=== PATIENT | male | born 1985 | race Hispanic/Latino ===

== ENCOUNTER 2018-01-11 22:00 | Emergency (ER) | payer MEDICARE ==
--- NOTE | 2018-01-11 23:42 | Emergency Department Report ---
ED General Adult HPI - General Chief complaint: Abdominal Pain Stated complaint: GENERAL WEAKNESS Time Seen by Provider: 01/11/18 23:01 Source: patient, EMS Mode of arrival: Stretcher Limitations: No Limitations - History of Present Illness Initial comments: 32-year-old male with a past medical history of arthritis, hypertension, benzodiazepine withdrawals, and seizures presents to the hospital with multiple complaints ongoing for several weeks. Patient states this is third hospital he has gone to an attempt to find out was wrong with him but he has not seen a primary care doctor. Patient complains of posterior neck pain radiating to left shoulder and arm, 2 episodes of nausea and vomiting today with left lower quadrant abdominal pain. He complaints a syncopal episode today. Patient has a resting tremor. When questioned about this patient states he is unsure how long he has had the tremor because he "does not realize he is shaking. He denies current prescription or abuse of benzodiazepines or alcohol. He was at another [facility] yesterday with the same complaints. Diagnosis was arthralgia, hip strain, back and neck pain general the patient was described Diclofenac and orphenadrine citrate as an outpatient and follow- up was advised. Patient received IV morphine and Phenergan while in the ED. Patient states he also received Ativan in the ED but this is not documented on the discharge papers. This paperwork also listed patient has an allergy to Haldol. He has a history of hypertension and currently take a lisinopril. He states that the lopressor has worked better for his blood pressure in the past. Severity scale (0 -10): 10 - Related Data Previous Rx's Medication Instructions Recorded Last Taken Type ALPRAZolam [Xanax TAB] 2 mg PO Q8HR #1 mo 06/04/15 Unknown Rx Docusate Sodium [Colace CAP] 100 mg PO BID #60 capsule 06/04/15 Unknown Rx Famotidine [Pepcid] 20 mg PO BID #60 tablet 06/04/15 Unknown Rx Metoprolol [Lopressor TAB] 12.5 mg PO BID #1 mo 06/04/15 Unknown Rx Mupirocin [Bactroban 2% OINT] 1 applic TP BID #1 tube 06/04/15 Unknown Rx amLODIPine [Norvasc] 10 mg PO QDAY #30 tablet 06/04/15 Unknown Rx diphenhydrAMINE [Benadryl CAP] 50 mg PO QHS #30 capsule 06/04/15 Unknown Rx oxyCODONE /ACETAMINOPHEN [Percocet 1 tab PO Q6H PRN #90 tab 06/04/15 Unknown Rx 5/325 mg] traZODone [Desyrel] 150 mg PO QHS #1 mo 06/04/15 Unknown Rx Allergies Allergy/AdvReac Type Severity Reaction Status Date / Time No Known Allergies Allergy Unverified 05/27/15 14:08 ED Review of Systems ROS: Stated complaint: GENERAL WEAKNESS Other details as noted in HPI Comment: All other systems reviewed and negative ED Past Medical Hx - Past Medical History Hx Hypertension: Yes (MOTHER DENIES BP) Hx Congestive Heart Failure: No Hx Diabetes: No Hx Arthritis: Yes (UPPER BACK) Hx Seizures: Yes Hx Psychiatric Treatment: Yes (benzo withdrawal) Hx Asthma: No Hx COPD: No - Social History Smoking Status: Current Every Day Smoker Substance Use Type: None - Medications Home Medications: Home Medications Medication Instructions Recorded Confirmed Last Taken Type ALPRAZolam [Xanax TAB] 2 mg PO Q8HR #1 mo 06/04/15 Unknown Rx Docusate Sodium [Colace CAP] 100 mg PO BID #60 capsule 06/04/15 Unknown Rx Famotidine [Pepcid] 20 mg PO BID #60 tablet 06/04/15 Unknown Rx Metoprolol [Lopressor TAB] 12.5 mg PO BID #1 mo 06/04/15 Unknown Rx Mupirocin [Bactroban 2% OINT] 1 applic TP BID #1 tube 06/04/15 Unknown Rx amLODIPine [Norvasc] 10 mg PO QDAY #30 tablet 06/04/15 Unknown Rx diphenhydrAMINE [Benadryl CAP] 50 mg PO QHS #30 capsule 06/04/15 Unknown Rx oxyCODONE /ACETAMINOPHEN [Percocet 1 tab PO Q6H PRN #90 tab 06/04/15 Unknown Rx 5/325 mg] traZODone [Desyrel] 150 mg PO QHS #1 mo 06/04/15 Unknown Rx ED Physical Exam - General Limitations: No Limitations - Other Other exam information: General: No limitations, patient is alert in no acute distress Head exam: Atraumatic, normocephalic Eyes exam: Normal appearance ENT: Moist mucous membrane, normal oropharynx Neck exam: Normal inspection, full range of motion, diffuse post neck tenderness extending to left side of neck and shoulder Respiratory exam: Clear to auscultation bilateral, no wheezes, rales, crackles Cardiovascular: Normal rate and rhythm, normal heart sounds Abdomen: Soft, nondistended, LLQ tenderness, with normal bowel sounds, no rebound, or guarding Extremity: Full range of motion normal inspection no deformity Back: Normal Inspection, full range of motion, no tenderness Neurologic: Alert, oriented x3, cranial nerves intact, no motor or sensory deficit. Resting tremors noted Psychiatric: normal affect, normal mood Skin: Warm, dry, intact ED Course Vital Signs 01/11/18 01/11/18 01/12/18 22:39 23:02 00:04 Temperature 98.5 F Pulse Rate 77 82 70 Respiratory 22 20 Rate Blood Pressure 150/110 Blood Pressure 156/105 147/97 [Right] O2 Sat by Pulse 99 97 Oximetry 01/12/18 02:13 Temperature Pulse Rate 88 Respiratory Rate Blood Pressure Blood Pressure 138/86 [Right] O2 Sat by Pulse Oximetry ED Medical Decision Making - Lab Data Result diagrams: 01/11/18 23:24 01/11/18 23:24 Lab Results 01/11/18 01/11/18 01/11/18 Range/Units 23:24 23:24 Unknown WBC 10.9 (4.5-11.0) K/mm3 RBC 4.43 (3.65-5.03) M/mm3 Hgb 14.6 (11.8-15.2) gm/dl Hct 42.5 (35.5-45.6) % MCV 96 H (84-94) fl MCH 33 H (28-32) pg MCHC 35 H (32-34) % RDW 15.6 H (13.2-15.2) % Plt Count 449 H (140-440) K/mm3 Lymph % (Auto) 31.2 (13.4-35.0) % [place] % (Auto) 8.1 H (0.0-7.3) % Eos % (Auto) 0.8 (0.0-4.3) % Baso % (Auto) 0.8 (0.0-1.8) % Lymph # 3.4 (1.2-5.4) K/mm3 [place] # 0.9 H (0.0-0.8) K/mm3 Eos # 0.1 (0.0-0.4) K/mm3 Baso # 0.1 (0.0-0.1) K/mm3 Seg Neutrophils % 59.1 (40.0-70.0) % Seg Neutrophils # 6.4 (1.8-7.7) K/mm3 Sodium 140 (137-145) mmol/L Potassium 3.5 L (3.6-5.0) mmol/L Chloride 100.5 (98-107) mmol/L Carbon Dioxide 26 (22-30) mmol/L Anion Gap 17 mmol/L BUN 18 (9-20) mg/dL Creatinine 1.2 (0.8-1.5) mg/dL Estimated GFR > 60 ml/min BUN/Creatinine Ratio 15 % Glucose 84 (75-100) mg/dL Calcium 10.0 (8.4-10.2) mg/dL Magnesium 1.70 (1.7-2.3) mg/dL Total Bilirubin 0.30 (0.1-1.2) mg/dL AST 24 (5-40) units/L ALT 22 (7-56) units/L Alkaline Phosphatase 90 (35-129) units/L Total Creatine Kinase 513 H (55-170) units/L CK-MB (CK-2) 1.4 (0.0-4.0) ng/mL CK-MB (CK-2) Rel Index 0.2 (0-4) Troponin T < 0.010 (0.00-0.029) ng/mL Total Protein 7.6 (6.3-8.2) g/dL Albumin 4.3 (3.9-5) g/dL Albumin/Globulin Ratio 1.3 % Lipase 29 (13-60) units/L Urine Color Yellow (Yellow) Urine Turbidity Clear (Clear) Urine pH 6.0 (5.0-7.0) Ur Specific [place] 1.031 H (1.003-1.030) Urine Protein 30 mg/dl (Negative) mg/dL Urine Glucose (UA) Neg (Negative) mg/dL Urine Ketones Tr (Negative) mg/dL Urine Blood Neg (Negative) Urine Nitrite Neg (Negative) Urine Bilirubin Neg (Negative) Urine Urobilinogen 2.0 (<2.0) mg/dL Ur Leukocyte Esterase Neg (Negative) Urine WBC (Auto) 3.0 (0.0-6.0) /HPF Urine RBC (Auto) 3.0 (0.0-6.0) /HPF U Epithel Cells (Auto) 1.0 (0-13.0) /HPF Ur Transition Epith Cell 1 /HPF Hyaline Casts 4 /LPF Urine Mucus 3+ /HPF - EKG Data -: EKG Interpreted by Me EKG shows normal: sinus rhythm, axis (qrs 34), QRS complexes (qrsd 99), ST-T waves (no stemi/t inv) Rate: normal (81) - EKG Data When compared to previous EKG there are: previous EKG unavailable - Medical Decision Making The prescription monitoring website access evaluate patient's recently filled medication. On 01/02/2018 patient had 24 tablets of tramadol 50 mg filled. It appears that patient has been on opioid addiction medication at least for the past year. He was initially on Buprenorphine 8 mg SL and received a 1 month supply monthly up until september. Suboxone 8mg-2mg sl film 30 days supply has been prescribed since October but pt only had a 7 day supply December 18 instead of his typical 30 days supply. Pt was on clonazepam 2mg with 30 day last filled in September labs are unremarkable ct head, cervical spine, and abd/pelvis ct ordered pt received toradol for pain 1 L NS Lopressor ordered than cancelled since bp improved pt refused to go to ct without additional pain medication. Pt obviously has a hx of drug narcotic abuse and is likely experiencing withdrawals and increased pain from lack of suboxone he is signing out AMA without imaging studies since I am not giving him any additional pain med he plans to go to yet another hospital. - Differential Diagnosis drug-seeking, chronic pain, narcotic withdrawal, gastroenteritis, diverticu Critical Care Time: No Critical care attestation.: If time is entered above; I have spent that time in minutes in the direct care of this critically ill patient, excluding procedure time. ED Disposition Clinical Impression: Narcotic dependence, Chronic pain Disposition: DC-07 LEFT AGAINST MED ADVICE Is pt being admited?: No Does the pt Need Aspirin: No Condition: Stable Time of Disposition: 02:16
[2018-01-11] MEDS ORDERED: TORADOL IV ONE (23:44)
[2018-01-11] MEDS ORDERED: NACL 0.9% 1000 ML 1,000 ML IV ONE (23:44)
[2018-01-12 00:15] LABS: Basophils # (Auto) 0.1 K/mm3 (0.0-0.1); Basophils % (Auto) 0.8 % (0.0-1.8); Eosinophils # (Auto) 0.1 K/mm3 (0.0-0.4); Eosinophils % (Auto) 0.8 % (0.0-4.3); Hematocrit 42.5 % (35.5-45.6); Hemoglobin 14.6 gm/dl (11.8-15.2); Lymphocytes # (Auto) 3.4 K/mm3 (1.2-5.4); Lymphocytes % (Auto) 31.2 % (13.4-35.0); Mean Corpuscular HGB Conc 35 % (32-34); Mean Corpuscular Hemoglobin 33 pg (28-32); Mean Corpuscular Volume 96 fl (84-94); Monocytes # (Auto) 0.9 K/mm3 (0.0-0.8); Monocytes % (Auto) 8.1 % (0.0-7.3); Platelet Count 449 K/mm3 (140-440); Red Blood Count 4.43 M/mm3 (3.65-5.03); Red Cell Distribution Width 15.6 % (13.2-15.2)
[2018-01-12 00:30] LABS: Creatine Kinase MB 1.4 ng/mL (0.0-4.0)
[2018-01-12 00:32] LABS: Alanine Aminotransferase 22 units/L (7-56); Albumin 4.3 g/dL (3.9-5); BUN/Creatinine Ratio 15; Blood Urea Nitrogen 18 mg/dL (9-20); Hemolysis Index 5; Lipase 29 units/L (13-60)
[2018-01-12] MEDS ORDERED: LOPRESSOR PO ONE (01:04)
[2018-01-12 01:55] LABS: Bilirubin,Urine NEG (Negative); Blood,Urine NEG (Negative); Color,Urine Yellow (Yellow); Hyaline Casts,Urine 4 /LPF; Mucus,Urine 3+ /HPF
[2018-01-12 02:14] VITALS: BP 138/86
[2018-01-12 03:34] LABS: Cocaine Screen,Urine PRESUMPTIVE NEGATIVE; Methadone Screen,Urine PRESUMPTIVE NEGATIVE; Opiate Screen,Urine PRESUMPTIVE NEGATIVE
[2018-01-12 04:04] LABS: Amphetamine Screen,Urine PRESUMPTIVE POSITIVE; Benzodiazepines Screen,Urine PRESUMPTIVE POSITIVE; Cannabinoid Screen,Urine PRESUMPTIVE POSITIVE
== END 2018-01-12 02:14 | disposition left against medical advice (07) ==
LOC: ED 22:00
DX: F11.20 Opioid dependence, uncomplicated (principal); M54.2 Cervicalgia; R11.2 Nausea with vomiting, unspecified; R10.32 Left lower quadrant pain; I10 Essential (primary) hypertension; M19.90 Unspecified osteoarthritis, unspecified site; F17.200 Nicotine dependence, unspecified, uncomplicated
CPT/HCPCS: 36415; 80053; 80307; 81001; 82550; 82553; 83690; 83735; 84484; 85025; 93005; 93010; 96361; 96374; 99284; J1885; J7030

== ENCOUNTER 2018-01-26 18:14 | Emergency (ER) | payer MEDICARE ==
[2018-01-26 18:33] VITALS: BP 138/95
[2018-01-26 19:41] LABS: Basophils % (Auto) 0.6 % (0.0-1.8); Eosinophils # (Auto) 0.3 K/mm3 (0.0-0.4); Eosinophils % (Auto) 4.3 % (0.0-4.3); Hematocrit 34.2 % (35.5-45.6); Hemoglobin 11.5 gm/dl (11.8-15.2); Lymphocytes # (Auto) 2.9 K/mm3 (1.2-5.4); Lymphocytes % (Auto) 48.1 % (13.4-35.0); Mean Corpuscular HGB Conc 34 % (32-34); Mean Corpuscular Hemoglobin 34 pg (28-32); Mean Corpuscular Volume 100 fl (84-94); Monocytes # (Auto) 0.6 K/mm3 (0.0-0.8); Monocytes % (Auto) 9.4 % (0.0-7.3); Platelet Count 281 K/mm3 (140-440); Red Blood Count 3.42 M/mm3 (3.65-5.03); Red Cell Distribution Width 15.3 % (13.2-15.2)
[2018-01-26 19:53] LABS: Alanine Aminotransferase 15 units/L (7-56); Albumin 3.6 g/dL (3.9-5); BUN/Creatinine Ratio 21; Blood Urea Nitrogen 15 mg/dL (9-20); Calcium 8.6 mg/dL (8.4-10.2); Hemolysis Index 7
--- NOTE | 2018-01-26 20:52 | Emergency Department Report ---
ED Medical Clearance HPI - General Chief complaint: Medical Clearance Stated complaint: MEDICAL CLEARANCE Time Seen by Provider: 01/26/18 19:15 Source: EMS Mode of arrival: Stretcher - History of Present Illness Initial comments: Pt is planning on going to [place] for substance abuse withdrawal. His last drink was reportedly a week ago. Here for medical clearance. Home medications: Previous Rx's Medication Instructions Recorded Last Taken Type ALPRAZolam [Xanax TAB] 2 mg PO Q8HR #1 mo 06/04/15 Unknown Rx Docusate Sodium [Colace CAP] 100 mg PO BID #60 capsule 06/04/15 Unknown Rx Famotidine [Pepcid] 20 mg PO BID #60 tablet 06/04/15 Unknown Rx Metoprolol [Lopressor TAB] 12.5 mg PO BID #1 mo 06/04/15 Unknown Rx Mupirocin [Bactroban 2% OINT] 1 applic TP BID #1 tube 06/04/15 Unknown Rx amLODIPine [Norvasc] 10 mg PO QDAY #30 tablet 06/04/15 Unknown Rx diphenhydrAMINE [Benadryl CAP] 50 mg PO QHS #30 capsule 06/04/15 Unknown Rx oxyCODONE /ACETAMINOPHEN [Percocet 1 tab PO Q6H PRN #90 tab 06/04/15 Unknown Rx 5/325 mg] traZODone [Desyrel] 150 mg PO QHS #1 mo 06/04/15 Unknown Rx Allergies/Adverse reactions: Allergies Allergy/AdvReac Type Severity Reaction Status Date / Time No Known Allergies Allergy Unverified 05/27/15 14:08 ED Review of Systems ROS: Stated complaint: MEDICAL CLEARANCE Other details as noted in HPI Comment: All other systems reviewed and negative ED Past Medical Hx - Past Medical History Hx Hypertension: Yes (MOTHER DENIES BP) Hx Congestive Heart Failure: No Hx Diabetes: No Hx Arthritis: Yes (UPPER BACK) Hx Seizures: Yes Hx Psychiatric Treatment: Yes (benzo withdrawal) Hx Asthma: No Hx COPD: No - Social History Smoking Status: Current Every Day Smoker Substance Use Type: None - Medications Home Medications: Home Medications Medication Instructions Recorded Confirmed Last Taken Type ALPRAZolam [Xanax TAB] 2 mg PO Q8HR #1 mo 06/04/15 Unknown Rx Docusate Sodium [Colace CAP] 100 mg PO BID #60 capsule 06/04/15 Unknown Rx Famotidine [Pepcid] 20 mg PO BID #60 tablet 06/04/15 Unknown Rx Metoprolol [Lopressor TAB] 12.5 mg PO BID #1 mo 06/04/15 Unknown Rx Mupirocin [Bactroban 2% OINT] 1 applic TP BID #1 tube 06/04/15 Unknown Rx amLODIPine [Norvasc] 10 mg PO QDAY #30 tablet 06/04/15 Unknown Rx diphenhydrAMINE [Benadryl CAP] 50 mg PO QHS #30 capsule 06/04/15 Unknown Rx oxyCODONE /ACETAMINOPHEN [Percocet 1 tab PO Q6H PRN #90 tab 06/04/15 Unknown Rx 5/325 mg] traZODone [Desyrel] 150 mg PO QHS #1 mo 06/04/15 Unknown Rx ED Physical Exam - General Limitations: Altered Mental Status (appears intoxicated), Physical Limitation General appearance: alert, in no apparent distress - Head Head exam: Present: atraumatic, normocephalic - Eye Eye exam: Present: normal appearance - ENT ENT exam: Present: mucous membranes moist - Neck Neck exam: Present: normal inspection - Respiratory Respiratory exam: Present: normal lung sounds bilaterally. Absent: respiratory distress - Cardiovascular Cardiovascular Exam: Present: regular rate, normal rhythm. Absent: systolic murmur, diastolic murmur, rubs, gallop - GI/Abdominal GI/Abdominal exam: Present: soft, normal bowel sounds. Absent: tenderness - Rectal Rectal exam: Present: deferred - Extremities Exam Extremities exam: Present: normal inspection - Back Exam Back exam: Present: normal inspection - Neurological Exam Neurological exam: Present: alert, oriented X3 - Psychiatric Psychiatric exam: Present: normal affect, normal mood - Skin Skin exam: Present: warm, dry, intact, normal color. Absent: rash ED Course Vital Signs 01/26/18 18:27 Temperature 97.5 F L Pulse Rate 70 Respiratory 16 Rate Blood Pressure 138/95 O2 Sat by Pulse 97 Oximetry ED Medical Decision Making - Lab Data Result diagrams: 01/26/18 19:21 01/26/18 19:21 - Medical Decision Making 32 yo male with pmhx of polysubstance abuse that presents to the ER for medical clearance. Lab work is unremarkable. Urine drug screen was positive for marijuana and benzos. Patient was kept in the ER until he was clinically sober. He was medically cleared for discharge. Has been instructed to [facility] for possible admission. - Differential Diagnosis intoxication, hypothyroidism, electrolyte abnormality, ED Disposition Clinical Impression: Medical clearance for psychiatric admission, Polysubstance abuse Disposition: DC-01 TO HOME OR SELFCARE Is pt being admited?: No Does the pt Need Aspirin: No Condition: Stable Additional Instructions: Please follow up at [place] for possible admission and substance abuse treatment. Referrals: LONI STRAUSS MD [Other] - 3-5 Days
[2018-01-26 22:44] LABS: Amphetamine Screen,Urine PRESUMPTIVE NEGATIVE; Cocaine Screen,Urine PRESUMPTIVE NEGATIVE; Methadone Screen,Urine PRESUMPTIVE NEGATIVE; Opiate Screen,Urine PRESUMPTIVE NEGATIVE
[2018-01-26 23:03] LABS: Benzodiazepines Screen,Urine PRESUMPTIVE POSITIVE; Cannabinoid Screen,Urine PRESUMPTIVE POSITIVE
== END 2018-01-27 03:09 | disposition home or self-care (01) ==
LOC: EEVIPCON 18:14 → ED 18:14
DX: F13.10 Sedative, hypnotic or anxiolytic abuse, uncomplicated (principal); F12.10 Cannabis abuse, uncomplicated; I10 Essential (primary) hypertension; M19.90 Unspecified osteoarthritis, unspecified site; F17.200 Nicotine dependence, unspecified, uncomplicated; R41.82 Altered mental status, unspecified
CPT/HCPCS: 36415; 80053; 80307; 85025; 99283; G0480; 80320